=== PATIENT | female | born 1980 | race African-American/Black ===

== ENCOUNTER 2018-05-25 21:54 | Emergency (ER) | payer OTHER, MEDICAID ==
[~2018-05-25] VITALS: Ht 167.6 cm; Wt 133.8 kg
[2018-05-25 22:04] VITALS: BP 164/99
[2018-05-25 22:09] VITALS: BP 164/99
--- NOTE | 2018-05-25 22:09 | NUR ---
PATIENT CAME IN WITH CHEST PAIN BIBA, PAIN WAS SHARP 10/10, DID NOT RADIATE, BP 164/99, BS 84, NO EDEMA NOTED, NORMAL SINUS, CAP REFILL < 3 SEC, PALPABLE PULSES. PATIENT NOT SHOWING ANY SIGNS OF DISTRESS, WAITING FOR EVALUATION BY ED MD.
[2018-05-25] MEDS ORDERED: ALUMINUM HYD/MAG/SIMETHICONE 30 ML UDC PO ONE (22:10)
[2018-05-25] MEDS ORDERED: NACL 0.9% 1,000 ML IV ONE (22:10)
[2018-05-25] MEDS ORDERED: DICYCLOMINE HCL LIQUID 10 MG/5 ML UDC PO ONE (22:10)
[2018-05-25] MEDS ORDERED: KETOROLAC 30 MG/ML VIAL IVP ONE (22:10)
[2018-05-25] MEDS ORDERED: LIDOCAINE VISCOUS 2% 20 ML UDC PO ONE (22:10)
[2018-05-25] MEDS ORDERED: PANTOPRAZOLE 40 MG INJ VIAL IVP ONE (22:10)
[2018-05-25 22:27] LABS: BASOPHILS % (AUTO) 0.3 % (0.0-2.0); EOSINOPHILS # (AUTO) 0.1 K/uL (0-0.4); EOSINOPHILS % (AUTO) 0.7 % (0.0-4.0); HEMATOCRIT 39.6 % (36-48); HEMOGLOBIN 13.1 g/dL (12.0-16.0); LYMPHOCYTES # (AUTO) 2.4 K/uL (2.5-16.5); LYMPHOCYTES % (AUTO) 16.8 % (20.5-51.1); MEAN CORPUSCULAR HEMOGLOBIN 28 pg (27-31); MEAN CORPUSCULAR HGB CONC 33 g/dL (33-37); MEAN CORPUSCULAR VOLUME 83.5 fL (80-94); MONOCYTES # (AUTO) 0.8 K/uL (0.8-1.0); MONOCYTES % (AUTO) 5.4 % (1.7-9.3); NEUTROPHILS # (AUTO) 11.2 K/uL (1.8-7.7); NEUTROPHILS % (AUTO) 76.8 % (42.2-75.2); PLATELET COUNT (AUTO) 355 K/uL (140-450); RED BLOOD CELL COUNT(AUTO) 4.75 MIL/uL (4.20-5.40); RED CELL DISTRIBUTION WIDTH 15.9 % (11.6-13.7); WHITE BLOOD COUNT (AUTO) 14.6 K/uL (4.8-10.8)
[2018-05-25 22:48] LABS: POTASSIUM 3.7 mmol/L (3.5-5.1)
[2018-05-25 22:49] LABS: ANION GAP 15.8 (8-16); CARBON DIOXIDE 25.9 mmol/L (21-32); CREATININE 0.8 mg/dL (0.6-1.3)
[2018-05-25 22:57] LABS: TOTAL BILIRUBIN 0.3 mg/dL (0.0-1.0)
[2018-05-25 22:58] LABS: ALBUMIN 3.5 g/dL (3.4-5.0)
--- NOTE | 2018-05-25 23:48 | NUR ---
Patient discharged with v/s stable. Written and verbal after care instructions given and explained. Patient alert, oriented and verbalized understanding of instructions. Ambulatory with steady gait. All questions addressed prior to discharge. ID band removed. Patient advised to follow up with PMD. Rx of TRAMADOL, PROTONIX given. Patient educated on indication of medication including possible reaction and side effects. Opportunity to ask questions provided and answered.
== END 2018-05-25 23:48 | disposition home or self-care (01) ==
LOC: MED 21:54
DX: K29.70 Gastritis, unspecified, without bleeding (principal); J45.909 Unspecified asthma, uncomplicated; E11.9 Type 2 diabetes mellitus without complications; I10 Essential (primary) hypertension
CPT/HCPCS: 36415; 71045; 80053; 84484; 85025; 93005; 96374; 96375; 99284; C9113; J1885; J7030; Q0092

== ENCOUNTER 2018-08-29 22:57 | Emergency (ER) | payer OTHER, MEDICAID ==
[~2018-08-29] VITALS: Ht 167.6 cm; Wt 133.8 kg
[2018-08-29 23:04] VITALS: BP 107/73
--- NOTE | 2018-08-29 23:06 | NUR ---
TO LOBBY A/W BED AMBULATORY
--- NOTE | 2018-08-29 23:20 | NUR ---
PT TAKEN TO BED 2
--- NOTE | 2018-08-29 23:23 | NUR ---
37 Y/O F PRESENTS TO ED W/C/O LOWER BACK TENDERNESS/PAIN 2 WEEKS. PT DENIES N/V/D; SKIN IS INTACT, PINK/WARM/DRY; AAOX4, PERRL, WITH EVEN AND STEADY GAIT; LUNGS CLEAR BL, BREATHING UNLABORED; HR EVEN AND REGULAR, BL PERIPHERAL PULSES PRESENT; BS ACTIVE X4; PT DENIES ANY FEVER, CP, SOB, OR COUGH AT THIS TIME; PT STATES 8/10 PAIN AT THIS TIME; VSS; PATIENT POSITIONED FOR COMFORT; HOB ELEVATED; BEDRAILS UP X2; BED DOWN.
[2018-08-30] MEDS ORDERED: NACL 0.9% 1,000 ML IV SCH (00:17)
[2018-08-30] MEDS ORDERED: KETOROLAC 15 MG/ML VIAL IVP ONE (00:20)
[2018-08-30 00:36] LABS: BASOPHILS # (AUTO) 0.1 K/uL (0.00-0.22); BASOPHILS % (AUTO) 0.9 % (0.0-2.0); EOSINOPHILS # (AUTO) 0.1 K/uL (0-0.4); EOSINOPHILS % (AUTO) 0.7 % (0.0-4.0); HEMATOCRIT 38.7 % (36-48); HEMOGLOBIN 12.5 g/dL (12.0-16.0); LYMPHOCYTES # (AUTO) 3.1 K/uL (2.5-16.5); LYMPHOCYTES % (AUTO) 23.7 % (20.5-51.1); MEAN CORPUSCULAR HEMOGLOBIN 27 pg (27-31); MEAN CORPUSCULAR HGB CONC 32 g/dL (33-37); MEAN CORPUSCULAR VOLUME 84.1 fL (80-94); MONOCYTES # (AUTO) 0.7 K/uL (0.8-1.0); MONOCYTES % (AUTO) 5.3 % (1.7-9.3); NEUTROPHILS # (AUTO) 9.1 K/uL (1.8-7.7); NEUTROPHILS % (AUTO) 69.4 % (42.2-75.2); PLATELET COUNT (AUTO) 322 K/uL (140-450); RED CELL DISTRIBUTION WIDTH 16.1 % (11.6-13.7); WHITE BLOOD COUNT (AUTO) 13.1 K/uL (4.8-10.8)
[2018-08-30 00:37] LABS: APPEARANCE,URINE CLEAR (CLEAR); BILIRUBIN,URINE NEGATIVE (NEGATIVE); BLOOD, URINE TRACE-I (NEGATIVE); COLOR,URINE YELLOW (YELLOW); LEUKOCYTE ESTERASE ,URINE NEGATIVE (NEGATIVE); NITRITE, URINE NEGATIVE (NEGATIVE); UGLUCOSE NEGATIVE (NEGATIVE)
[2018-08-30 00:52] LABS: ALBUMIN 3.4 g/dL (3.4-5.0); ANION GAP 17.2 (8-16); CARBON DIOXIDE 21.6 mmol/L (21-32); CREATININE 0.9 mg/dL (0.6-1.3); POTASSIUM 3.8 mmol/L (3.5-5.1); TOTAL BILIRUBIN 0.3 mg/dL (0.0-1.0)
[2018-08-30 01:14] LABS: RBC,URINE 0-5 /HPF (0-5); WBC,URINE 0-5 /HPF (0-5)
[2018-08-30] MEDS ORDERED: MORPHINE SULFATE 4 MG/ML SYR IVP ONE (02:30)
[2018-08-30 02:56] VITALS: BP 110/75
--- NOTE | 2018-09-04 08:30 | NUR ---
Late entry. Confirmed with RN that 1000 ml 0.9 NS IV bolus completed at 0130
== END 2018-08-30 02:57 | disposition home or self-care (01) ==
LOC: MED 22:57
DX: S33.5XXA Sprain of ligaments of lumbar spine, initial encounter (principal); J45.909 Unspecified asthma, uncomplicated; E11.9 Type 2 diabetes mellitus without complications; I10 Essential (primary) hypertension; X58.XXXA Exposure to other specified factors, initial encounter; Y93.89 Activity, other specified; Y92.89 Other specified places as the place of occurrence of the external cause; Y99.8 Other external cause status
CPT/HCPCS: 36415; 74176; 76830; 80053; 81001; 81025; 85025; 96374; 96375; 99284; J1885; J2270; J7030; Q0092

== ENCOUNTER 2018-11-30 17:09 | Emergency (ER) | payer OTHER ==
[~2018-11-30] VITALS: Ht 167.6 cm; Wt 133.8 kg
[2018-11-30 17:10] VITALS: BP 137/69
[2018-11-30] MEDS ORDERED: NACL 0.9% 1,000 ML IV SCH (17:43)
[2018-11-30] MEDS ORDERED: PANTOPRAZOLE 40 MG INJ VIAL IVP ONE (17:45)
[2018-11-30] MEDS ORDERED: KETOROLAC 30 MG/ML VIAL IVP ONE (17:45)
[2018-11-30 18:26] LABS: BASOPHILS # (AUTO) 0.1 K/uL (0.00-0.22); BASOPHILS % (AUTO) 0.6 % (0.0-2.0); EOSINOPHILS % (AUTO) 0.1 % (0.0-4.0); HEMATOCRIT 44.3 % (36-48); HEMOGLOBIN 14.4 g/dL (12.0-16.0); LYMPHOCYTES # (AUTO) 1.9 K/uL (2.5-16.5); LYMPHOCYTES % (AUTO) 11.4 % (20.5-51.1); MEAN CORPUSCULAR HEMOGLOBIN 28 pg (27-31); MEAN CORPUSCULAR HGB CONC 33 g/dL (33-37); MONOCYTES # (AUTO) 0.6 K/uL (0.8-1.0); MONOCYTES % (AUTO) 3.7 % (1.7-9.3); NEUTROPHILS # (AUTO) 13.8 K/uL (1.8-7.7); NEUTROPHILS % (AUTO) 84.2 % (42.2-75.2); PLATELET COUNT (AUTO) 403 K/uL (140-450); RED BLOOD CELL COUNT(AUTO) 5.14 MIL/uL (4.20-5.40); RED CELL DISTRIBUTION WIDTH 15.3 % (11.6-13.7); WHITE BLOOD COUNT (AUTO) 16.4 K/uL (4.8-10.8)
[2018-11-30 18:37] LABS: CARBON DIOXIDE 18.4 mmol/L (21-32); CREATININE 0.8 mg/dL (0.6-1.3); POTASSIUM 3.4 mmol/L (3.5-5.1)
[2018-11-30 18:42] LABS: ALBUMIN 3.8 g/dL (3.4-5.0); TOTAL BILIRUBIN 0.2 mg/dL (0.0-1.0)
[2018-11-30] MEDS ORDERED: MORPHINE SULFATE 4 MG/ML SYR IVP ONE (18:55)
[2018-11-30 19:32] VITALS: BP 108/70
== END 2018-11-30 19:32 | disposition home or self-care (01) ==
LOC: MED 17:09
DX: R10.13 Epigastric pain (principal); R11.2 Nausea with vomiting, unspecified; R19.7 Diarrhea, unspecified; E11.9 Type 2 diabetes mellitus without complications; I10 Essential (primary) hypertension; J45.909 Unspecified asthma, uncomplicated; Z90.710 Acquired absence of both cervix and uterus
CPT/HCPCS: 36415; 71045; 80053; 82948; 83690; 85025; 96361; 96374; 96375; 99284; C9113; J1885; J2270; J7030; Q0092

== ENCOUNTER 2018-12-05 08:24 | Emergency (ER) | payer OTHER ==
[~2018-12-05] VITALS: Ht 167.6 cm; Wt 133.8 kg
[2018-12-05 08:34] VITALS: BP 134/80
--- NOTE | 2018-12-05 08:43 | NUR ---
Patient ambulated to bed 3. RN evaluating patient at bedside.
--- NOTE | 2018-12-05 08:44 | NUR ---
38/F BIB SELF C/O LOWER ABDOMINAL PAIN & BURNING URINATION X4 DAYS, DENIES ABNORMAL DISCHARGES, WAS DX OF UTI TWO WEEKS AGO, TREATED WITH ANTIBIOTIC. ABDOMEN SOFT. HX OF ASTHMA, HTN, DM. BS 98MG/DL NOW. PATIENT STATES PAIN OF 03/08 AT THIS TIME. PATIENT POSITIONED FOR COMFORT; HOB ELEVATED; BEDRAILS UP X1; BED DOWN. ER MD MADE AWARE OF PT STATUS.
--- NOTE | 2018-12-05 09:00 | NUR ---
URINE SPECIMEN SENT TO LAB
--- NOTE | 2018-12-05 09:26 | NUR ---
Patient being evaluated by DR GUERRERO at bedside.
--- NOTE | 2018-12-05 09:41 | NUR ---
C/O PAIN 12/06,, NOTIFIED DR GUERRERO.
[2018-12-05] MEDS ORDERED: IBUPROFEN 600 MG TAB PO ONE (09:45)
[2018-12-05 09:55] LABS: APPEARANCE,URINE HAZY (CLEAR); BILIRUBIN,URINE NEGATIVE (NEGATIVE); BLOOD, URINE NEGATIVE (NEGATIVE); COLOR,URINE YELLOW (YELLOW); PH,URINE 6.5 (5.0-9.0); UGLUCOSE 3+ (NEGATIVE)
[2018-12-05 09:56] LABS: LEUKOCYTE ESTERASE ,URINE 1+ (NEGATIVE); NITRITE, URINE NEGATIVE (NEGATIVE)
[2018-12-05] MEDS ORDERED: PHENAZOPYRIDINE 100 MG TAB PO ONE (10:15)
[2018-12-05] MEDS ORDERED: FLUCONAZOLE 100 MG TAB PO ONE (10:15)
[2018-12-05] MEDS ORDERED: NITROFURANTOIN 100 MG CAP PO ONE (10:15)
[2018-12-05 11:02] VITALS: BP 134/83
--- NOTE | 2018-12-05 11:02 | NUR ---
Patient discharged with v/s stable. Written and verbal after care instructions given and explained. Patient alert, oriented and verbalized understanding of instructions. Ambulatory with steady gait. All questions addressed prior to discharge. ID band removed. Patient advised to follow up with PMD. Rx of MACROBID, PHENAZOPYRIDINE given. Patient educated on indication of medication including possible reaction and side effects. Opportunity to ask questions provided and answered.
[2018-12-05 11:34] LABS: RBC,URINE 0-5 /HPF (0-5)
== END 2018-12-05 11:02 | disposition home or self-care (01) ==
LOC: MED 08:24
DX: N39.0 Urinary tract infection, site not specified (principal); J45.909 Unspecified asthma, uncomplicated; E11.9 Type 2 diabetes mellitus without complications; I10 Essential (primary) hypertension
CPT/HCPCS: 81001; 81025; 82948; 87086; 99284

== ENCOUNTER 2019-04-03 19:42 | Emergency (ER) | payer OTHER, MEDICAID ==
[~2019-04-03] VITALS: Ht 165.1 cm; Wt 129.3 kg
[2019-04-03 19:50] VITALS: BP 129/90
[2019-04-03] MEDS ORDERED: NACL 0.9% 1,000 ML IV ONE (20:29)
[2019-04-03] MEDS ORDERED: METOCLOPRAMIDE 10 MG/2 ML INJ VIAL IVP ONE (20:30)
[2019-04-03] MEDS ORDERED: diphenhydrAMINE 50 MG/ML VIAL IVP ONE (20:30)
[2019-04-03] MEDS ORDERED: KETOROLAC 30 MG/ML VIAL IM ONE (21:55)
[2019-04-03 22:11] LABS: BARBITURATE, URINE NEG. ng/ml (NEG <=200); BENZODIAZEPINE, URINE NEG. ng/mL (NEG <=200); CANNABINOID, URINE NEG. ng/mL (NEG <=50); COCAINE, URINE NEG. ng/mL (NEG <=300); OPIATE, URINE NEG. ng/mL (NEG <=2000); PHENCYCLIDINE SCREEN,URINE NEG. ng/mL (NEG <=25)
[2019-04-03 22:50] VITALS: BP 129/90
== END 2019-04-03 22:50 | disposition home or self-care (01) ==
LOC: MED 19:42
DX: R51 Headache (principal); J45.909 Unspecified asthma, uncomplicated; E11.9 Type 2 diabetes mellitus without complications; I10 Essential (primary) hypertension; F17.210 Nicotine dependence, cigarettes, uncomplicated; Z90.49 Acquired absence of other specified parts of digestive tract; Z71.6 Tobacco abuse counseling; Z79.899 Other long term (current) drug therapy
CPT/HCPCS: 70450; 80305; 81002; 81025; 82948; 96361; 96372; 96374; 96375; 99284; J1200; J1885; J2765; J7030